=== PATIENT | male | born 1975 | race Caucasian/White ===

== ENCOUNTER 2020-11-03 09:54 | Outpatient (REF) | payer MEDICAID, SELFPAY ==
--- NOTE | ~2020-11-03 | XR_ITS ---
EXAMINATION: XR LUMBOSACRAL SPINE WITH OBLIQUES CLINICAL INFORMATION: Low back pain. COMPARISON: None TECHNIQUE: AP, both oblique, and lateral views of the lumbar spine. Lateral view of the lumbosacral junction. FINDINGS: There is normal lumbar lordosis. The vertebral heights, alignment and disc heights are normal. There is no visible fracture, dislocation or subluxation. Moderate ventral spondylosis T11-T12 and T12-L1 disc levels are noted. The paravertebral soft tissues are normal. XR/XR lumbar spine 4V min IMPRESSION: No acute intracranial process seen. Moderate ventral spondylosis T11-T12 disc level.
== END 2020-11-03 09:55 | disposition home or self-care (01) ==
LOC: HO.XRAY 09:54
PROVIDERS: PCP Nurse Practitioner Primary Care; Visit Provider Nurse Practitioner Primary Care
DX: M54.5 Low back pain (principal)
CPT/HCPCS: 72110

== ENCOUNTER → 2021-07-15 10:31 | Outpatient (BNVA) | payer MEDICAID, SELFPAY | PROVIDERS: PCP Nurse Practitioner Primary Care; Visit Provider Surgery Vascular Surgery | DX: M79.89 Other specified soft tissue disorders (principal) | CPT/HCPCS: 99202 ==

== ENCOUNTER → 2021-08-25 09:55 | Outpatient (BNVA) | payer MEDICAID, SELFPAY | PROVIDERS: PCP Pediatrics; Visit Provider Orthopaedic Surgery | DX: M65.341 Trigger finger, right ring finger (principal); R20.0 Anesthesia of skin; R20.2 Paresthesia of skin | CPT/HCPCS: 99202; J1100 ==

== ENCOUNTER 2021-09-09 08:47 | Outpatient (REF) | payer MEDICAID, SELFPAY ==
--- NOTE | 2021-09-09 | EMG_ITS ---
Right median and ulnar motor and sensory studies were performed. Right radial sensory study was performed and paraspinal muscles were tested with a needle. IMPRESSION: 1. Moderately severe right median neuropathy across carpal tunnel. 2. Mild right ulnar neuropathy across cubital tunnel. MD ARUN Kaye/ERNESTINA / [id number]
== END 2021-09-09 08:48 | disposition home or self-care (01) ==
LOC: HO.NEURO 08:47
PROVIDERS: Visit Provider Orthopaedic Surgery
DX: R20.0 Anesthesia of skin (principal)
CPT/HCPCS: 95886; 95909

== ENCOUNTER → 2021-09-14 09:18 | Outpatient (BNVA) | payer MEDICAID, SELFPAY | PROVIDERS: Visit Provider Orthopaedic Surgery | DX: M65.341 Trigger finger, right ring finger (principal); G56.01 Carpal tunnel syndrome, right upper limb | CPT/HCPCS: 99212 ==

== ENCOUNTER 2021-10-04 10:27 | Day surgery (SDC) | payer MEDICAID, SELFPAY ==
--- NOTE | 2021-10-04 11:11 | W.PM.OPN ---
Operative Note Operative Note Date of Service: 10/04/21 Narrative: Preop diagnosis: 1. right Carpal tunnel syndrome 2. Right ring finger trigger finger Postop diagnosis: same Procedure: 1. right Carpal tunnel release 2. Right ring finger trigger release Surgeon: Parris Pastor MD Anesthesia: local block using 1% lidocaine with epinephrine Findings: Thickened transverse carpal ligament. no locking and catching after A1 diamond release EBL: Less than 5 mL Specimens: None Complications: None Disposition: Brought to recovery room in stable condition Plan: Follow-up for 10-14 days for wound check and suture removal Indications: The patient is 46 years old, with right carpal tunnel syndrome and a right ring finger trigger finger that have been unresponsive to nonoperative management. The risks and benefits of operative treatment including but not limited to risk of damage to blood vessels, nerves, tendons, infection, persistent pain, persistent symptoms, or possible need for additional surgery were discussed with the patient and the patient wishes to proceed with surgery. Procedure: Once consent was obtained a local block was performed using a combination of 1% lidocaine with epinephrine. The patient was then brought back to the operating suite and placed on the operative table in supine position. A tourniquet was applied to the proximal aspect of the right upper extremity and the limb was prepped and draped in a standard surgical fashion. Once assured that we had a good block, a 1.5 cm longitudinal incision was made centered over the carpal tunnel. The incision was made through the skin to the subcutaneous tissues using a #15 blade. Dissection was made down to the level of the transverse carpal ligament with care being taken to protect the palmar cutaneous nerve. Once the transverse carpal ligament was clearly visualized, a longitudinal incision was made in the transverse carpal ligament 1st using a #15 blade, then using tenotomy scissors under direct visualization. Care was taken to look for and protect the motor branch of the median nerve when seen in this area. Once assured that we had a good block, a 1.5 cm oblique incision was made centered over the A1 diamond of the right ring finger . The incision was made through the skin to the subcutaneous tissues using a #15 blade. Careful dissection was made down to the level of the A1 diamond using tenotomy scissors, with care being taken to protect the nearby neurovascular structures. A longitudinal incision was made in the A1 diamond 1st using a #15 blade, then using tenotomy scissors under direct visualization. The A1 diamond was noted to be thickened. Following our A1 diamond release, we no longer saw any locking or catching of the digit with flexion and extension. Of interest we did see some light catching of the middle finger. When asked he said it is not particularly bothersome. Once satisfied with our carpal tunnel release and trigger release the wounds were copiously irrigated with normal saline and hemostasis was obtained with a brief period of local pressure. The skin edges were reapproximated with some 5.0 nylon suture material and a sterile dressing was applied. The patient appears to have tolerated the procedure well and with no complications. All digits were well vascularized at the conclusion of the case.
[2021-10-04 11:25] VITALS: BMI 34.9
[2021-10-04 11:26] VITALS: BP 148/90; PULSE 67; RESP 18; TEMP 37.1; O2SAT 97
[2021-10-04 12:39] VITALS: BP 149/87; PULSE 72; RESP 16; TEMP 37.3; O2SAT 99
--- NOTE | 2021-10-04 12:57 | MHC.SHP ---
Pre-Procedural Eval Section A Date of Service: 10/04/21 The patient is an INPATIENT: No Changes since office visit: No Cold of Flu in the past 2 weeks, No New Medical Problems, No Changes in Medication and No Patient answered all questions The History & Physical has been completed within 30 days and I have reviewed it.: Yes Section B Chief Complaint: carpal tunnel,trigger release Allergies: Allergies Allergy/AdvReac Type Severity Reaction Status Date / Time Penicillins Allergy Unknown UNKNOWN Unverified 08/25/21 10:08 Plan I have reviewed the history and physical and performed a pertinent physical examination on my patient. No changes have occurred unless specified.
== END 2021-10-04 12:55 | disposition home or self-care (01) ==
PROVIDERS: Visit Provider Orthopaedic Surgery
PROC: (CPT 64721; principal; 2021-10-04 11:30)
PROC: (CPT 26055; 2021-10-04 11:30)
DX: G56.01 Carpal tunnel syndrome, right upper limb (principal); M65.341 Trigger finger, right ring finger; R20.0 Anesthesia of skin; I25.2 Old myocardial infarction; B18.2 Chronic viral hepatitis C; F14.20 Cocaine dependence, uncomplicated; Z79.899 Other long term (current) drug therapy; Z88.0 Allergy status to penicillin; F17.210 Nicotine dependence, cigarettes, uncomplicated
CPT/HCPCS: 64721; 26055

== ENCOUNTER → 2021-10-18 09:02 | Outpatient (BNVA) | payer MEDICAID, SELFPAY | PROVIDERS: PCP Nurse Practitioner Primary Care; Visit Provider Physician Assistant | DX: M65.341 Trigger finger, right ring finger (principal); G56.01 Carpal tunnel syndrome, right upper limb | CPT/HCPCS: 99212 ==

== ENCOUNTER 2021-11-19 06:47 | Outpatient (REF) | payer MEDICAID, SELFPAY ==
--- NOTE | ~2021-11-19 | XR_ITS ---
EXAMINATION: XR HIP, RIGHT CLINICAL INFORMATION: Pain right hip COMPARISON: None TECHNIQUE: Two views of the right hip. FINDINGS: No displaced fracture. The femoral head is well-seated within the acetabulum. There is mild cartilage space loss in the hip. XR/XR hip RT min 2V IMPRESSION: Mild degenerative change in the right hip. No displaced fracture.
[2021-11-19 08:25] LABS: Alanine Aminotransferase 87 U/L (0-40); Albumin Level 3.9 g/dL (3.5-5.0); Alkaline Phosphatase 55 U/L (39-117); Anion Gap 11 (12-20); Aspartate Amino Transferase 38 U/L (5-37); Bilirubin Total 0.3 mg/dL (0.0-1.0); Blood Urea Nitrogen 13 mg/dL (9-16); Calcium 9.9 mg/dL (8.4-10.2); Carbon Dioxide 24 mmol/L (22-29); Chloride 108 mmol/L (96-108); Cholesterol 160 mg/dL; Estimated Glomerular Filt Rate > 60; Glucose Random 97 mg/dL (60-115); HDL Cholesterol 47 mg/dL; LDL Cholesterol Calculated 99 mg/dl; Potassium 4.3 mmol/L (3.3-5.1); Sodium 139 mmol/L (135-145); Total Protein 7.1 g/dL (6.5-8.0); Triglycerides 73 mg/dL
== END 2021-11-19 06:48 | disposition home or self-care (01) ==
LOC: HO.LAB 06:47
PROVIDERS: PCP Nurse Practitioner Primary Care; Visit Provider Nurse Practitioner Primary Care
DX: Z00.00 Encounter for general adult medical examination without abnormal findings (principal); M25.551 Pain in right hip; I21.4 Non-ST elevation (NSTEMI) myocardial infarction
CPT/HCPCS: 36415; 73502; 80053; 80061

== ENCOUNTER 2023-01-23 12:14 | Emergency (ER) | payer MEDICAID, SELFPAY ==
--- NOTE | ~2023-01-23 | XR_ITS ---
EXAMINATION: XR CHEST CLINICAL INFORMATION: Shortness of breath. COMPARISON: 11/14/2008 TECHNIQUE: 2 views of the chest were obtained. FINDINGS: The lungs are well expanded. No focal consolidation. No pleural effusion. Cardiac silhouette is unchanged. Stable left seventh rib deformity. XR/XR chest 2V IMPRESSION: No acute abnormality.
[2023-01-23 12:37] VITALS: BP 00/00; PULSE 115; O2SAT 97
[2023-01-23 12:38] VITALS: BP 167/95; PULSE 126; RESP 16; TEMP 36.8; O2SAT 97
--- NOTE | 2023-01-23 12:42 | ECG_ITS ---
Test Reason : substance use Blood Pressure : / mmHG Vent. Rate : 120 BPM Atrial Rate : 120 BPM P-R Int : 122 ms QRS Dur : 078 ms QT Int : 344 ms P-R-T Axes : 053 -31 044 degrees QTc Int : 486 ms Sinus tachycardia Left axis deviation Moderate voltage criteria for LVH, may be normal variant ( R in aVL , [place] product ) Abnormal ECG When compared with ECG of 14-NOV-2008 02:07, No significant change was found Referred By: Generic ED Physician Electronically Signed By:OJ MORIN
--- NOTE | 2023-01-23 13:35 | ED.SOB ---
HPI - SOB/Dyspnea General Chief Complaint: ETOH/Substance Use Stated Complaint: L ARM PAIN FROM INJ COCAIN,WANTS DETOX Time Seen by Provider: 01/23/23 12:44 Source: patient Mode of arrival: EMS History of Present Illness HPI Narrative: 47-year-old male is brought in by EMS looking for detox and states he was recently seen at [facility] and use cocaine approximately 3 hours prior to presentation today. While at [facility] he was discharged on antibiotics. Related Data Home Medications Medication Instructions Recorded Confirmed baclofen 10 mg tablet 10 mg PO TID 07/15/21 clonidine HCl 0.1 mg tablet 0.1 mg PO BID 07/15/21 escitalopram oxalate 10 mg tablet 10 mg PO DAILY 07/15/21 sulfamethoxazole 400 1 tab PO BID 07/15/21 mg-trimethoprim 80 mg tablet (Bactrim) Previous Rx's Medication Instructions Recorded hydrocodone 5 mg-acetaminophen 325 1 tab PO Q4-6H PRN pain #7 tabs 10/04/21 mg tablet Allergies Allergy/AdvReac Type Severity Reaction Status Date / Time Penicillins Allergy Unknown UNKNOWN Unverified 08/25/21 10:08 Review of Systems Review of Systems: Pertinent positives and negatives as stated in HPI PMFSH Past Medical History Source: nursing notes reviewed Medical History Anxiety Gallstone Hepatitis C virus Renal mass Social History Social History Patient Tobacco Use Status: Current everyday Tobacco user Cigarettes Per Day: 4 Advance Directives: No Advance Directives Information Provided: No Current occupational status: unemployed Current occupation: rt hand Physical Exam Vital Signs: Vital Signs: Last Vital Signs Temp 98.2 F 01/23/23 12:38 Pulse 126 H 01/23/23 12:38 Resp 16 01/23/23 12:38 BP 167/95 H 01/23/23 12:38 Pulse Ox 97 01/23/23 12:38 O2 Del Method Room Air 01/23/23 12:38 BMI result Body Mass Index 30.0 VITAL SIGNS: Reviewed. GENERAL: Well developed, well nourished, in no acute distress. HEAD: Normocephalic/atraumatic EYES: PERRLA, EOMI EARS: Ext canals without abnormality OROPHARYNX: no oral lesions noted, posterior pharynx clear NECK: Supple, no adenopathy LUNGS: Normal breath sounds. No adventitious sounds or accessory muscle use. SpO2<97> CARDIOVASCULAR: Sinus tachycardia and rhythm without noted murmurs ABDOMEN: Soft, non-tender, non-distended with bowel sounds. MUSCULOSKELETAL: No tenderness, deformities, or effusions noted on gross inspection. EXTREMITIES: No cyanosis, clubbing or edema; LEFT UPPER EXTREMITY: There is an open wound to the forearm that is draining serous fluid with surrounding erythema and induration but sensation and pulses are palpable. SKIN: Inspection of the skin reveals no rashes NEUROLOGIC: Alert and oriented x 4. Strength and sensation to light touch were grossly intact x 4. Medical Decision Making Medical Decision Making MDM Narrative: 47-year-old male with history and clinical presentation consistent with tachycardia related to recent cocaine usage denies any chest pain and patient is currently on antibiotics for left arm cellulitis. Patient is otherwise hemodynamically stable despite sinus tachycardia. Notified by nursing that patient left stating he wanted to be seen at [facility]. Differential Diagnosis Please see the discussion above Independent Interpretation I performed an independent interpretation of an: EKG Interpretation: Sinus tachycardia, HR-120, no STEMI, [place]/QRS/QTC is within normal limits. Radiology Impression Radiologist Impression: At the time the patient left chest x-ray still has not been read, on my prelim reading there is no evidence to suggest pneumothorax, pneumonia. Discharge Plan Discharge Clinical Impression: Sinus tachycardia, Cocaine use Patient Disposition: Left Against Medical Advice Prescriptions: No Action hydrocodone-acetaminophen 5-325 mg tablet 1 tab PO Q4-6H PRN (Reason: pain) Qty: 7 0RF baclofen 10 mg tablet 10 mg PO TID clonidine HCl 0.1 mg tablet 0.1 mg PO BID escitalopram oxalate 10 mg tablet 10 mg PO DAILY Discharge Date/Time: 01/23/23 14:12
--- NOTE | 2023-01-23 14:05 | MHC.EDTECH ---
THIS PCT ENTERS PATIENT'S ROOM TO MEASURE VITAL SIGNS PER MD ORDER. PATIENT SUBSEQUENTLY BEGINS TO REMOVE TELEPHONE MESSENGER AND STATES THAT HE IS LEAVING FOR A DIFFERENT HOSPITAL. RN AND AWARE.
--- NOTE | 2023-01-23 14:09 | PC.NURSE ---
PT REFUSED LAB DRAW. STATES HE IS LEAVING AMA. WANTS TO FOLLOW UP AT [facility]. PT EDUCATED ON RISKS, BELONGINGS RETURNED. PT AMBULATORY OUT OF ED
== END 2023-01-23 14:12 | disposition left against medical advice (07) ==
LOC: HO.ED 13:15
PROVIDERS: Emergency Provider Student in an Organized Health Care Education/Training Program
DX: R00.0 Tachycardia, unspecified (principal); F14.10 Cocaine abuse, uncomplicated; F17.200 Nicotine dependence, unspecified, uncomplicated; Z71.6 Tobacco abuse counseling; Z79.899 Other long term (current) drug therapy
CPT/HCPCS: 71046; 93005; 99283

== ENCOUNTER 2023-02-28 18:12 | Outpatient (REF) | payer MEDICAID, SELFPAY ==
[2023-02-28 18:20] LABS: Appearance Urine Clear; Color Urine Yellow; Glucose Urine UA Negative (Negative); Leukocyte Esterase Urine Negative (Negative); Nitrite Urine Negative (Negative); PH 6.5 (5.0-9.0); Specific Gravity - Urine 1.025 (1.005-1.025); Urine Blood Negative (Negative); Urine Ketones Negative (Negative); Urine Protein Negative (Neg-Trace)
== END 2023-02-28 18:13 | disposition home or self-care (01) ==
LOC: HO.HHCLNP 18:12
PROVIDERS: Visit Provider Nurse Practitioner Primary Care
DX: R30.0 Dysuria (principal); R10.2 Pelvic and perineal pain
CPT/HCPCS: 81003

== ENCOUNTER 2023-03-06 08:03 | Outpatient (RCR) | payer MEDICAID, SELFPAY | END 2023-05-01 15:36 | disposition home or self-care (01) | LOC: HO.WCC 08:03 | PROVIDERS: PCP Nurse Practitioner Primary Care; Visit Provider Physician Assistant | DX: L98.492 Non-pressure chronic ulcer of skin of other sites with fat layer exposed (principal); F14.10 Cocaine abuse, uncomplicated; I10 Essential (primary) hypertension; I25.2 Old myocardial infarction; Z87.891 Personal history of nicotine dependence; Z86.19 Personal history of other infectious and parasitic diseases; Z86.73 Personal history of transient ischemic attack (TIA), and cerebral infarction without residual deficits | CPT/HCPCS: 11042; 99212 ==

== ENCOUNTER 2023-03-16 12:03 | Outpatient (REF) | payer MEDICAID, SELFPAY ==
--- NOTE | ~2023-03-16 | US_ITS ---
EXAMINATION: US PELVIS, LIMITED/FOLLOW UP CLINICAL INFORMATION: Suprapubic pain COMPARISON: None available. TECHNIQUE: Grayscale and color views of the soft tissues of the area of concern in the right suprapubic soft tissues was obtained. FINDINGS: No correlate to the reported symptom of pain. No fluid collection. No lymphadenopathy or soft tissue mass. US/US pelvic limited IMPRESSION: No correlate to the reported symptom of pain.
== END 2023-03-16 12:04 | disposition home or self-care (01) ==
LOC: HO.US 12:03
PROVIDERS: PCP Nurse Practitioner Primary Care; Visit Provider Nurse Practitioner Primary Care
DX: R10.2 Pelvic and perineal pain (principal)
CPT/HCPCS: 76857

== ENCOUNTER → 2023-03-23 13:46 | Outpatient (REF) | payer MEDICAID, SELFPAY ==
--- NOTE | 2023-03-23 13:48 | CA_ITS ---
Transthoracic Echocardiogram Patient (Last, First, Middle): Bassam Franco A Gender: Male Date of : 1975 Age: 47 Procedure Date: 03/23/2023 Procedure Type: Transthoracic Echocardiogram Location: OP Height: 172.72 cm Weight: 98.88 kg BSA: 2.12 m2 Heart Rate: 71 bpm Osteopathic Resident: FLOYD Referring MD: Yandy Poe MD Extrusion Manager: Narciso Aquino MD Symptoms: HYPERTENSION 116.0/ R/O endocarditis (janeway lesions IV drug use) Study Quality: Fair ECG Rhythm: Sinus Conclusions: - 1. No clear vegetations seen on this study although limited evaluation for the same 2. Normal LV systolic function with LVEF of 60 65% with mild LVH with impaired relaxation filling pattern 3. Cardiac valvular Dopplers within normal limits 4. Mildly dilated ascending aorta 3.9 cm 5. No gross pericardial effusion Findings Left Ventricle Normal left ventricular size and systolic function. There is mildly increased left ventricular wall thickness. The visually estimated ejection fraction is between 60-65%. Spectral Doppler is indicative of an impaired relaxation filling pattern. E/E prime ratio is between 8 and 15 consistent with indeterminate filling pressures. Right Ventricle Normal right ventricular cavity size and systolic function. Atria The left atrium is likely dilated. Interatrial shunt cannot be excluded. The right atrium is normal in size. Aortic Valve The aortic valve structure and function is likely normal. There is no aortic valve stenosis. There is no aortic valve regurgitation. Mitral Valve Likely normal mitral valve structure and function. There is no mitral valve regurgitation. There is no mitral valve stenosis. Pulmonic Valve The pulmonic valve was not well visualized. Tricuspid Valve Likely normal tricuspid valve structure and function. Tricuspid regurgitation envelope is inadequate for calculation of right ventricular systolic pressure. Normal right atrial pressure. Great Vessels The pulmonary artery was not well visualized. There is mild dilatation of the ascending aorta measuring 3.90 cm. Venous The inferior vena cava is normal in size and collapses greater than 50% with inspiration. Pericardium/Pleural There is no evidence of pericardial effusion. Prior Study Comparison No prior study available for comparison. Recommendations, Care & Conclusions Consider a LUCIE if clinically appropriate. Measurements 2D Linear Measurements IVSd: 1.28 0.6-0.9/0.6-1.0 cm LVIDd: 4.77 3.9-5.3/4.2-5.9 cm LVIDd Index: 2.25 2.4-3.2/2.2-3.1 cm/m2 LVIDs: 3.66 2.0-3.6 cm LVPWd: 1.13 0.7-1.1 cm LA Diam: 3.70 2.7-3.8/3.0-4.0 cm LAIDs Index: 1.75 1.5-2.3 cm/m2 LV Mass: 272.08 67-162/88-224 g LV Mass Index: 128.34 43-95/49-115 g/m2 LVOT Diam: 2.00 3.0+(-)1.3 cm 2D Systolic Function EF Teich: 47.00 >55% Mitral Valve MV Pk E: 0.84 MV PK A: 0.72 MV Decel Time: 204.00 E/A: 1.20 E'Lateral: 9.14 E'Medial: 6.42 E/E' Med: 13.00 E/E' Lat: 9.10 PHT: 60.00 MVA PHT: 3.67 Decel Baca: 4.09 Aortic Valve AoV Pk Xavi: 1.56 AoV Mn Xavi: 1.12 AoV VTI: 0.29 AoV Pk Grad: 10.00 Aov Mn Grad: 6.00 MALICK Cont.VTI: 2.77 LVOT LVOT Pk Xavi: 1.36 LVOT Mn Xavi: 0.96 LVOT VTI: 0.25 LVOT Pk Grad: 7.00 LVOT Mn Grad: 4.00 LVOT Diam: 2.00 LVOT Area: 3.14 Diastolic Function MV Pk E: 0.84 MV Pk A: 0.72 E/A: 1.20 E'Medial: 6.42 E/E' Med: 13.00 E' Laterial: 9.14 E/E' Lat: 9.10 Right Ventricle TAPSE (mm): 23.90 TVS' Xavi: 13.90 Tricuspid Valve RA Press: 3.00 Great Vessels Aorta Sinus of Valsalva: 3.00 2.0-3.[address] Ridge: 3.14 1.7-3.4 cm Ao Asc: 3.90 2.1-3.4 cm Ao Arch: 3.40 Ao Desc: 2.40 Pulmonary Valve PV Pk Xavi: 1.47 Peak PV Grad: 9.00 Updated in Other Vendor System with Status of Final Narciso Aquino MD electronically signed on 03/24/2023 9:54:48 AM with status of Final
== END ==
LOC: HO.CARD 13:46
PROVIDERS: PCP Nurse Practitioner Primary Care; Visit Provider Internal Medicine
DX: I16.0 Hypertensive urgency (principal)
CPT/HCPCS: 93306

== ENCOUNTER → 2023-03-23 13:48 | Outpatient (BNV) | payer MEDICAID, SELFPAY | PROVIDERS: PCP Nurse Practitioner Primary Care; Visit Provider Internal Medicine Cardiovascular Disease | DX: I10 Essential (primary) hypertension (principal) | CPT/HCPCS: 93306 ==

== ENCOUNTER 2023-03-27 09:09 | Outpatient (REF) | payer MEDICAID, SELFPAY ==
[2023-03-27 11:55] LABS: Appearance Urine Clear; Color Urine Yellow; Glucose Urine UA Negative (Negative); Leukocyte Esterase Urine Negative (Negative); Nitrite Urine Negative (Negative); Urine Blood Negative (Negative); Urine Ketones Negative (Negative); Urine Protein Trace mg/dL (Neg-Trace)
[2023-03-27 11:58] LABS: Bacteria Urine None Seen (None Seen); Hyaline Casts Urine 0-2 /LPF (0-2); RBC Urine 0-2 /HPF (0-2); Squamous Epithelial Cell Urine 0-2 /HPF (0-2); WBC Urine 0-5 /HPF (0-5)
[2023-03-27 12:25] LABS: Alanine Aminotransferase 65 U/L (0-40); Albumin Level 4.3 g/dL (3.5-5.0); Alkaline Phosphatase 60 U/L (39-117); Anion Gap 10 (12-20); Aspartate Amino Transferase 34 U/L (5-37); Bilirubin Total 0.4 mg/dL (0.0-1.0); Blood Urea Nitrogen 17 mg/dL (9-16); Calcium 9.6 mg/dL (8.4-10.2); Carbon Dioxide 24 mmol/L (22-29); Chloride 108 mmol/L (96-108); Cholesterol 141 mg/dL (<200); Estimated Glomerular Filt Rate > 60; Glucose Random 95 mg/dL (60-115); HDL Cholesterol 55 mg/dL (>40); LDL Cholesterol Calculated 68 mg/dL (<100); Potassium 4.2 mmol/L (3.3-5.1); Sodium 138 mmol/L (135-145); Total Protein 7.6 g/dL (6.5-8.0); Triglycerides 91 mg/dL (<150)
[2023-03-27 12:26] LABS: Syphilis Screen Nonreactive (Nonreactive)
== END 2023-03-27 09:10 | disposition home or self-care (01) ==
LOC: HO.HHCL 09:09
PROVIDERS: Visit Provider Internal Medicine
DX: R21 Rash and other nonspecific skin eruption (principal); I25.2 Old myocardial infarction; R30.0 Dysuria; R10.2 Pelvic and perineal pain; I10 Essential (primary) hypertension
CPT/HCPCS: 36415; 80053; 80061; 81001; 86780

== ENCOUNTER 2023-03-28 13:21 | Outpatient (REF) | payer MEDICAID, SELFPAY ==
[2023-03-28 15:16] LABS: CDiff Gene PCR NEGATIVE (Negative)
[2023-03-28 15:26] LABS: Adenovirus F 40/41 Not Detected (Not Detect.); Astrovirus Not Detected (Not Detect.); Campylobacter Not Detected (Not Detect.); Cryptosporidium Not Detected (Not Detect.); Cyclospora cayetanensis Not Detected (Not Detect.); E. coli EAEC Not Detected (Not Detect.); E. coli EPEC Not Detected (Not Detect.); E. coli ETEC Not Detected (Not Detect.); E. coli STEC Not Detected (Not Detect.); Entamoeba histolytica Not Detected (Not Detect.); Giardia lamblia Not Detected (Not Detect.); Norovirus GI/GII Not Detected (Not Detect.); Plesiomonas shigelloides Not Detected (Not Detect.); Rotavirus A Not Detected (Not Detect.); Salmonella Not Detected (Not Detect.); Shigella sp./EIEC Not Detected (Not Detect.); Vibrio Not Detected (Not Detect.); Vibrio Cholerae Not Detected (Not Detect.); Yersinia enterocolitica Not Detected (Not Detect.)
[2023-03-28 15:27] LABS: Sapovirus Not Detected (Not Detect.)
== END 2023-03-28 13:22 | disposition home or self-care (01) ==
LOC: HO.HHCLNP 13:21
PROVIDERS: Visit Provider Nurse Practitioner Primary Care
DX: R19.5 Other fecal abnormalities (principal)
CPT/HCPCS: 87177; 87209; 87493; 87507

== ENCOUNTER → 2023-03-29 08:25 | Outpatient (BNVA) | payer MEDICAID, SELFPAY | PROVIDERS: PCP Nurse Practitioner Primary Care; Visit Provider Internal Medicine Cardiovascular Disease | DX: R07.89 Other chest pain (principal); I10 Essential (primary) hypertension; I71.20 Thoracic aortic aneurysm, without rupture, unspecified | CPT/HCPCS: 93005; 99202 ==

== ENCOUNTER → 2023-03-29 08:25 | Outpatient (AMB) | payer MEDICAID, SELFPAY ==
--- NOTE | 2023-03-29 08:29 | MHC.OFFVIS ---
Intake Vital Signs 03/29/23 08:30 Height 5 ft 10 in Weight 220 lb BMI 31.6 BP 132/96 H Blood Pressure Location Lt brachial Position Sitting Pulse 78 Intake Visit Reasons: [employer]/ Carie Garrett/ CP/ h/o nstemi Intake Note: NPV Operations Manager Assistant Required: Yes Operations Manager Assistant Language: Reconciliation Accountant Name: Joslyn [id number] Accompanied by: Self / Same As Patient Allergies Penicillins Allergy (Unknown, Verified 03/29/23 08:32) UNKNOWN Medication List - Last Reconciled 03/29/23 by Narciso Aquino MD acetaminophen 650 mg PO TID PRN diphenhydramine HCl 25 mg PO Q6H PRN duloxetine 30 mg PO DAILY duloxetine 20 mg PO BID folic acid 1 mg PO DAILY hydroxyzine pamoate 25 mg PO TID lisinopril 10 mg PO DAILY ixomwjzh-mtgp-VG-calcium-mins 9 mg iron-400 mcg (Thera M Plus (ferrous fumarate)) 1 tab PO DAILY nicotine 1 patch topical DAILY oxycodone 5 mg PO Q6-8H HPI HPI Comments History of Present Illness Details Thank you for referring Bassam in cardiology consultation today for chest pain. Patient is a 47-year-old male with prior history of cocaine use but this currently been sober for some time, hypertension which she says has been uncontrolled. He is top measuring blood pressures home because it constantly is elevated in the 180 range. We did have a certified yacht hand in the room to help with communication but we were able to communicate mostly with Maltese. Patient is currently for few years been having intermittent episode precordial chest pain. There is no clear relation to exertion. Patient can happen to have chest pain at any time. He was having mild chest discomfort today. EKG done did not show any acute significant ischemic changes. A EKG done in January at [facility] when he had presented with suicidal ideation. He signed out against medical advise him that went to [facility] where most of his care is provided. Patient subsequently had an echocardiogram for suspected endocarditis. This showed normal LV systolic function grade 1 diastolic dysfunction but showed some mildly enlarged thoracic aorta without any major valvular abnormality. Patient denies significant shortness of breath with exertion. Denies any orthopnea, PND, leg edema. Denies any prolonged palpitations, lightheadedness, syncope. [facility] Medical History Anxiety Gallstone Hepatitis C virus Renal mass Thoracic aortic aneurysm Uncontrolled hypertension Family History Mother No problems noted. Father No problems noted. Social History Alcohol intake: never Patient Tobacco Use Status: Former Tobacco user Years Smoked: 20 +/- Current occupational status: unemployed Current occupation: rt hand Review of Systems Const Denies chills, Denies daytime sleepiness, Denies fatigue, Denies fever(s), Denies frequent falls, Denies night sweats, Denies snoring, Denies weakness, Denies weight gain and Denies weight loss Eyes Denies loss of vision ENT Denies dizziness and Denies hearing loss Card Denies chest pain, Denies chest pain with activity, Denies syncope, Denies rapid heart rate, Denies edema, Denies claudication, Denies leg edema, Denies lightheadedness, Denies palpitations, Denies dyspnea, Denies dyspnea on exertion and Denies orthopnea Resp Denies cough, Denies excessive phlegm production, Denies dyspnea, Denies dyspnea on exertion, Denies snoring and Denies wheezing GI Denies abdominal pain, Denies hematochezia, Denies change in bowel habits, Denies change in stool character, Denies heartburn, Denies nausea and Denies vomiting Denies hematuria, Denies dysuria and Denies urinary frequency Musc Denies arthralgias, Denies muscle weakness, Denies numbness and Denies tingling Skin/Breast Denies nail changes and Denies rash Neuro Denies Abnormal speech present, Denies dizziness, Denies syncope, Denies frequent falls, Denies loss of vision, Denies memory loss, Denies numbness, Denies tingling and Denies weakness Psych Denies depression and Denies memory loss Endo Denies fatigue and Denies palpitations Aller/Immun Denies wheezing Physical Exam Vital Signs: Last Vital Signs Pulse 78 03/29/23 08:30 BP 132/96 H 03/29/23 08:30 BMI result Body Mass Index 31.6 Const General: cooperative, comfortable, no acute distress, well developed, alert and awake Nutritional Appearance: well nourished and overweight Orientation/consciousness: patient oriented x3 HEENT Head: Yes normocephalic and Yes atraumatic Neck Neck: Yes trachea midline, Yes supple and Yes no JVD Resp Effort & Inspection: normal respiratory effort Auscultation: clear to auscultation bilaterally Cardio Jugular venous distension: no JVD Palpation: normal PMI Rate: regular rate Rhythm: regular rhythm Heart sounds: S1 normal heart sound present, S2 normal heart sound present, no click, no gallops, no murmurs and no rubs GI Auscultation: normal bowel sounds Skin General skin exam: no rashes or lesions noted and other (Scarred tracks) Neuro General: patient oriented x3 and no focal motor deficits Speech: No Abnormal speech present Extrem General: Yes no clubbing, cyanosis or edema Psych Appearance: grossly normal Office Procedures EKG Details: EKG shows normal sinus rhythm with voltage criteria for LVH with nonspecific ST changes in the inferior leads [id number], Complete Assessment & Plan Assessment & Plan (1) Atypical chest pain: Code(s): R07.89 - Other chest pain Plan: Patient almost constant chest pain with no clear exertional pattern with EKG note showing any significant changes with chest discomfort. Unlikely to represent myocardial ischemia. Could be related to uncontrolled hypertension and/or hypertensive heart disease. Will suggest to treadmill stress test to evaluate for myocardial ischemia although less likely. However this needs to be ruled out given his multiple risk factors including prior cocaine use and hypertension. His lipids are well optimized at this point time. (2) Uncontrolled hypertension: Code(s): I10 - Essential (primary) hypertension Plan: His blood pressure is uncontrolled and at home he has much higher blood pressure than recorded today. He is frustrated with the management of blood pressure. We discussed that it is important to control blood pressure given that he has early changes of hypertensive heart disease. No signs or symptoms of heart failure. Will increase lisinopril to 20 mg daily and advised to monitor blood pressure at home on a regular basis. Low-salt diet was discussed. Avoidance of cocaine use completely was discussed. He understands. Nurse visit in 6 weeks for blood pressure check along with his log. (3) Thoracic aortic aneurysm: Comment: 3.9 cm, March 2023 echocardiogram Code(s): I71.20 - Thoracic aortic aneurysm, without rupture, unspecified Plan: Mild thoracic aortic aneurysm most likely hypertensive in nature. Avoid sudden strenuous isometric exercise. No interventions required. Aggressive control blood pressures above his required. Follow-up in 1 year's time. Will follow up in the clinic in 1 year's time, sooner p.r.n.. Thank you for allowing me to partake in his care Orders: Orders CA echo transthoracic complete 52 Weeks I71.20 - Thoracic aortic aneurysm, without rupture, unspecified CA stress test Today R07.89 - Other chest pain Medications: New lisinopril 20 mg PO DAILY 30 tabs 5RF Coding Level of Care Code New Pt Level 4 (16687) Diagnoses Atypical chest pain R07.89 Uncontrolled hypertension I10 Thoracic aortic aneurysm I71.20 CPT Codes EKG - CPT: 64465-[id number], Complete ([id number])
[2023-03-29 08:30] VITALS: BP 132/96; PULSE 78; BMI 31.6
== END ==
PROVIDERS: PCP Nurse Practitioner Primary Care; Visit Provider Internal Medicine Cardiovascular Disease
DX: R07.89 Other chest pain (principal); I10 Essential (primary) hypertension; I71.20 Thoracic aortic aneurysm, without rupture, unspecified
CPT/HCPCS: 93010; 99204

== ENCOUNTER → 2023-05-09 09:08 | Outpatient (BNVA) | payer MEDICAID, SELFPAY | PROVIDERS: PCP Nurse Practitioner Primary Care; Visit Provider Internal Medicine Cardiovascular Disease ==

== ENCOUNTER 2024-03-13 | Outpatient (REF) | payer MEDICAID, SELFPAY ==
[2024-03-14 11:33] LABS: Amphetamine Screen Urine Not Detected (Not Detect); Barbiturates, Urine Not Detected (Not Detect); Benzodiazepines Screen Urine Not Detected (Not Detect); Buprenorphine Scr Not Detected (Not Detect); Cannabinoid Screen Urine Not Detected (Not Detect); Cocaine Screen Urine Not Detected (Not Detect); Fentanyl, urine Not Detected (Not Detect); Methadone Screen, Urine Not Detected (Not Detect); Opiate Screen Urine Not Detected (Not Detect); Oxycodone Screen Urine Not Detected (Not Detect); Phencyclidine Screen Urine Not Detected (Not Detect)
== END 2024-03-13 00:01 | disposition home or self-care (01) ==
LOC: HO.HHCLNP
PROVIDERS: Visit Provider Nurse Practitioner Primary Care
DX: R55 Syncope and collapse (principal)
CPT/HCPCS: 80307

== ENCOUNTER → 2024-03-18 14:21 | Outpatient (REF) | payer MEDICAID, SELFPAY ==
--- NOTE | 2024-03-18 14:23 | CA_ITS ---
Transthoracic Echocardiogram Patient (Last, First, Middle): Bassam Franco A Gender: Male Date of : 1975 Age: 48 Procedure Date: 03/18/2024 Procedure Type: Transthoracic Echocardiogram Location: OP Height: 172.72 cm Weight: 103.42 kg BSA: 2.16 m2 Heart Rate: bpm BP: 142 / 90 mmHg [employer]: KATHY Referring MD: Narciso Aquino MD Symptoms: I71.20 - Thoracic aortic aneurysm, without rupture, unspecified Study Quality: Adequate ECG Rhythm: Sinus Conclusions: - The left ventricular systolic function is normal. The visually estimated ejection fraction is between 55-60%. - No obvious valvular pathology seen on this study. - There is mild dilatation of the ascending aorta measuring 4.00 cm. Findings Left Ventricle Normal left ventricular cavity size. There is mildly increased left ventricular wall thickness. The left ventricular systolic function is normal. The visually estimated ejection fraction is between 55-60%. There is no evidence of regional wall motion abnormalities. Diastolic function is normal for age. Right Ventricle Mildly increased right ventricular cavity size. There is normal right ventricular systolic function. Atria Both atria are normal in size. Aortic Valve There is a normal trileaflet aortic valve. There is no aortic valve stenosis. There is no aortic valve regurgitation. Mitral Valve The mitral valve appears normal. There is no mitral valve regurgitation. There is no mitral valve stenosis. Pulmonic Valve The pulmonic valve is likely normal. Tricuspid Valve There is trace tricuspid valve regurgitation. Tricuspid regurgitation envelope is inadequate for calculation of right ventricular systolic pressure. Great Vessels The aortic arch is normal in size. There is mild dilatation of the ascending aorta measuring 4.00 cm. Small plaque is seen in the sino tubular ridge. Venous The inferior vena cava is normal in size and collapses greater than 50% with inspiration. Pericardium/Pleural There is no evidence of pericardial effusion. Prior Study Comparison No significant change compared to prior study dated: 03/23/2023. Recommendations, Care & Conclusions No obvious valvular pathology seen on this study. Measurements 2D Linear Measurements IVSd: 1.10 0.6-0.9/0.6-1.0 cm LVIDd: 4.51 3.9-5.3/4.2-5.9 cm LVIDd Index: 2.09 2.4-3.2/2.2-3.1 cm/m2 LVIDs: 2.95 2.0-3.6 cm LVPWd: 1.09 0.7-1.1 cm LA Diam: 3.50 2.7-3.8/3.0-4.0 cm LAIDs Index: 1.62 1.5-2.3 cm/m2 LV Mass: 217.39 67-162/88-224 g LV Mass Index: 100.64 43-95/49-115 g/m2 LVOT Diam: 2.10 3.0+(-)1.3 cm 2D Systolic Function EF 4C: 57.60 >55% EF 2C: 60.90 >55% EF BiP: 60.20 >55% Mitral Valve MV Pk E: 0.81 MV PK A: 0.80 MV Decel Time: 194.00 E/A: 1.00 E'Lateral: 8.27 E'Medial: 6.42 E/E' Med: 12.70 E/E' Lat: 9.80 PHT: 57.00 MVA PHT: 3.86 Decel Wilson: 4.20 Aortic Valve AoV Pk Xavi: 1.93 AoV Mn Xavi: 1.17 AoV VTI: 0.31 AoV Pk Grad: 15.00 Aov Mn Grad: 6.00 MALICK Cont.VTI: 3.20 LVOT LVOT Pk Xavi: 1.40 LVOT Mn Xavi: 0.96 LVOT VTI: 0.29 LVOT Pk Grad: 8.00 LVOT Mn Grad: 4.00 LVOT Diam: 2.10 LVOT Area: 3.46 Diastolic Function MV Pk E: 0.81 MV Pk A: 0.80 E/A: 1.00 E'Medial: 6.42 E/E' Med: 12.70 E' Laterial: 8.27 E/E' Lat: 9.80 Right Ventricle TAPSE (mm): 28.50 TVS' Xavi: 23.00 Tricuspid Valve RA Press: 3.00 Great Vessels Aorta Sinus of Valsalva: 3.28 2.0-3.[address] Ridge: 2.39 1.7-3.4 cm Ao Asc: 4.00 2.1-3.4 cm Ao Arch: 3.50 Updated in Other Vendor System with Status of Final Olvin Martin MD electronically signed on 03/19/2024 12:08:21 PM with status of Final
== END ==
LOC: HO.CARD 14:21
PROVIDERS: PCP Nurse Practitioner Primary Care; Visit Provider Internal Medicine Cardiovascular Disease
DX: I71.20 Thoracic aortic aneurysm, without rupture, unspecified (principal)
CPT/HCPCS: 93306

== ENCOUNTER → 2024-03-18 14:23 | Outpatient (BNV) | payer MEDICAID, SELFPAY | PROVIDERS: PCP Nurse Practitioner Primary Care; Visit Provider Internal Medicine | DX: I71.21 Aneurysm of the ascending aorta, without rupture (principal) | CPT/HCPCS: 93306 ==

== ENCOUNTER 2024-04-15 | Outpatient (REF) | payer MEDICAID, SELFPAY | END 2024-04-15 00:01 | disposition home or self-care (01) | LOC: HO.HHCLNP | PROVIDERS: Visit Provider Nurse Practitioner Primary Care | DX: F14.91 Cocaine use, unspecified, in remission (principal) | CPT/HCPCS: 80307 ==

== ENCOUNTER 2024-05-07 16:05 | Outpatient (REF) | payer MEDICAID, SELFPAY ==
[2024-05-07 18:26] LABS: Anion Gap 12 (12-20); Blood Urea Nitrogen 15 mg/dL (9-16); Calcium 9.4 mg/dL (8.4-10.2); Carbon Dioxide 23 mmol/L (22-29); Chloride 111 mmol/L (96-108); Estimated Glomerular Filt Rate > 60; Glucose Random 94 mg/dL (60-115); Potassium 3.9 mmol/L (3.3-5.1); Sodium 142 mmol/L (135-145)
[2024-05-10 03:03] LABS: TS Negative Control Passed; TS Panel A 0; TS Panel B 0; TS Positive Control Passed; TSpotTB Negative (Negative)
== END 2024-05-07 16:06 | disposition home or self-care (01) ==
LOC: HO.HHCL 16:05
PROVIDERS: Visit Provider Nurse Practitioner Primary Care
DX: E87.5 Hyperkalemia (principal); Z11.1 Encounter for screening for respiratory tuberculosis
CPT/HCPCS: 36415; 80048; 86481

== ENCOUNTER 2024-05-15 11:22 | Outpatient (REF) | payer MEDICAID, SELFPAY ==
[2024-05-16 11:56] LABS: Amphetamine Screen Urine Not Detected (Not Detect); Barbiturates, Urine Not Detected (Not Detect); Benzodiazepines Screen Urine Not Detected (Not Detect); Buprenorphine Scr Not Detected (Not Detect); Cannabinoid Screen Urine Not Detected (Not Detect); Cocaine Screen Urine Not Detected (Not Detect); Fentanyl, urine Not Detected (Not Detect); Methadone Screen, Urine Not Detected (Not Detect); Opiate Screen Urine Not Detected (Not Detect); Oxycodone Screen Urine Not Detected (Not Detect); Phencyclidine Screen Urine Not Detected (Not Detect)
== END 2024-05-15 11:23 | disposition home or self-care (01) ==
LOC: HO.HHCLNP 11:22
PROVIDERS: Visit Provider Nurse Practitioner Primary Care
DX: F14.91 Cocaine use, unspecified, in remission (principal)
CPT/HCPCS: 80307

== ENCOUNTER 2024-05-16 11:46 | Outpatient (REF) | payer MEDICAID, SELFPAY | END 2024-05-16 11:47 | disposition home or self-care (01) | LOC: HO.LNP 11:46 | PROVIDERS: Visit Provider Nurse Practitioner Primary Care | DX: R12 Heartburn (principal) | CPT/HCPCS: 87338 ==

== ENCOUNTER 2024-05-28 15:13 | Outpatient (REF) | payer MEDICAID, SELFPAY ==
[2024-05-28 17:44] LABS: MANUAL DIFF FLAG NO
[2024-05-28 18:01] LABS: Basophils Percent Auto 0.3 % (0-2); Eosinophils Absolute Auto 0.2 X10*3/uL (0.0-0.4); Eosinophils Percent Auto 1.6 % (0-4); Hematocrit 47.1 % (42.0-52.0); Hemoglobin 15.5 g/dl (14.0-18.0); Imm Gran Abs Auto 0.08 X10*3/uL (0.00-0.03); Imm Gran Pct Auto 0.8 % (0.0-0.4); Lymphocytes Absolute Auto 2.2 X10*3/uL (1.2-4.9); Lymphocytes Percent Auto 22.7 % (20-40); Mean Corpuscular HGB Conc 32.9 g/dl (31.0-36.0); Mean Corpuscular Hemoglobin 26.2 pg (27.0-33.0); Mean Corpuscular Volume 79.7 fL (80.0-98.0); Mean Platelet Volume 8.5 fL (9.4-12.4); Monocytes Absolute Auto 0.9 X10*3/uL (0.1-1.2); Monocytes Percent Auto 9.4 % (2-11); Neutrophils Absolute Auto 6.2 x10*3/uL (2.0-8.3); Neutrophils Percent Auto 65.2 % (45-73); Platelet Count 316 X10*3/uL (160-400); Red Blood Count 5.91 X10*6/uL (4.60-5.80); White Blood Count 9.5 X10*3/uL (4.8-10.8)
[2024-05-28 18:18] LABS: Alanine Aminotransferase 33 U/L (0-40); Alkaline Phosphatase 54 U/L (39-117); Anion Gap 12 (12-20); Aspartate Amino Transferase 34 U/L (5-37); Bilirubin Total 0.4 mg/dL (0.0-1.0); Blood Urea Nitrogen 15 mg/dL (9-16); Calcium 9.5 mg/dL (8.4-10.2); Carbon Dioxide 25 mmol/L (22-29); Chloride 109 mmol/L (96-108); Cholesterol 102 mg/dL (<200); Estimated Glomerular Filt Rate > 60; Glucose Random 81 mg/dL (60-115); HDL Cholesterol 39 mg/dL (>40); LDL Cholesterol Calculated 44 mg/dL (<100); Potassium 3.9 mmol/L (3.3-5.1); Sodium 142 mmol/L (135-145); Triglycerides 96 mg/dL (<150)
[2024-05-28 19:20] LABS: TSH reflex Free T4 0.52 uIU/mL (0.32-4.0)
== END 2024-05-28 15:14 | disposition home or self-care (01) ==
LOC: HO.CHCLDS 15:13
PROVIDERS: Visit Provider Internal Medicine
DX: Z00.00 Encounter for general adult medical examination without abnormal findings (principal)
CPT/HCPCS: 36415; 80053; 80061; 84443; 85025

== ENCOUNTER 2024-06-25 16:54 | Outpatient (REF) | payer MEDICAID, SELFPAY ==
[2024-06-25 17:19] LABS: Amphetamine Screen Urine Not Detected (Not Detect); Barbiturates, Urine Not Detected (Not Detect); Benzodiazepines Screen Urine Not Detected (Not Detect); Buprenorphine Scr Not Detected (Not Detect); Cannabinoid Screen Urine Not Detected (Not Detect); Cocaine Screen Urine Not Detected (Not Detect); Fentanyl, urine Not Detected (Not Detect); Methadone Screen, Urine Not Detected (Not Detect); Opiate Screen Urine Not Detected (Not Detect); Oxycodone Screen Urine Not Detected (Not Detect); Phencyclidine Screen Urine Not Detected (Not Detect)
== END 2024-06-25 16:55 | disposition home or self-care (01) ==
LOC: HO.HHCLNP 16:54
PROVIDERS: Visit Provider Nurse Practitioner Primary Care
DX: F14.20 Cocaine dependence, uncomplicated (principal)
CPT/HCPCS: 80307

== ENCOUNTER 2024-07-11 17:25 | Outpatient (REF) | payer MEDICAID, SELFPAY ==
[2024-07-11 17:54] LABS: Amphetamine Screen Urine Not Detected (Not Detect); Barbiturates, Urine Not Detected (Not Detect); Benzodiazepines Screen Urine Not Detected (Not Detect); Buprenorphine Scr Not Detected (Not Detect); Cannabinoid Screen Urine Not Detected (Not Detect); Cocaine Screen Urine Not Detected (Not Detect); Fentanyl, urine Not Detected (Not Detect); Methadone Screen, Urine Not Detected (Not Detect); Opiate Screen Urine Not Detected (Not Detect); Oxycodone Screen Urine Not Detected (Not Detect); Phencyclidine Screen Urine Not Detected (Not Detect)
== END 2024-07-11 17:26 | disposition home or self-care (01) ==
LOC: HO.HHCLNP 17:25
PROVIDERS: Visit Provider Nurse Practitioner Primary Care
DX: F14.91 Cocaine use, unspecified, in remission (principal)
CPT/HCPCS: 80307

== ENCOUNTER 2024-08-14 16:12 | Outpatient (REF) | payer MEDICAID, SELFPAY ==
[2024-08-14 16:28] LABS: Amphetamine Screen Urine Not Detected (Not Detect); Barbiturates, Urine Not Detected (Not Detect); Benzodiazepines Screen Urine Not Detected (Not Detect); Buprenorphine Scr Not Detected (Not Detect); Cannabinoid Screen Urine Not Detected (Not Detect); Cocaine Screen Urine Not Detected (Not Detect); Fentanyl, urine Not Detected (Not Detect); Methadone Screen, Urine Not Detected (Not Detect); Opiate Screen Urine Not Detected (Not Detect); Oxycodone Screen Urine Not Detected (Not Detect); Phencyclidine Screen Urine Not Detected (Not Detect)
== END 2024-08-14 16:13 | disposition home or self-care (01) ==
LOC: HO.HHCLNP 16:12
PROVIDERS: Visit Provider Nurse Practitioner Primary Care
DX: F14.91 Cocaine use, unspecified, in remission (principal)
CPT/HCPCS: 80307